=== PATIENT | female | born 1975 | race Asian ===

== ENCOUNTER 2018-06-07 09:21 | Day surgery (SDC) | payer OTHER ==
[2018-06-07] VITALS (11 sets, daily range): BP systolic 98–124; BP diastolic 56–73
[~2018-06-07] VITALS: Ht 157.5 cm; Wt 48.5 kg
--- NOTE | 2018-06-07 07:29 | Pre-Procedure Note/Attestation ---
Pre-Procedure Note/Attestation Complete Prior to Procedure Planned Procedure: not applicable Procedure Narrative: Procedure for Prolapse and Hemorrhoids Indications for Procedure Pre-Operative Diagnosis: Hemorrhoids Attestation I attest that I discussed the nature of the procedure; its benefits; risks and complications; and alternatives (and the risks and benefits of such alternatives ), prior to the procedure, with the patient (or the patient's legal policy services representative). I attest that, if there was a reasonable possibility of needing a blood transfusion, the patient (or the patient's legal policy services representative) was given the [facility] standardized written summary, pursuant to the [place] Blood Safety Act ([place] Health and Safety Code # 1645, as amended). I attest that I re-evaluated the patient just prior to the surgery and that there has been no change in the patient's H&P, except as documented below: Ivone Fuentes MD Jun 07, 2018 07:29
[~2018-06-07 09:21] MED LIST: NKM
[2018-06-07] MEDS ORDERED: cefOXitin 1gm Inj ONE (09:58)
[2018-06-07] MEDS ORDERED: fentaNYL 100 mcg/2 mL IV ONE (09:58)
[2018-06-07] MEDS ORDERED: Midazolam 2mg/2ml Inj ONE (09:58)
[2018-06-07] MEDS ORDERED: Dexamethasone 4mg/ml vial ONE (09:58)
[2018-06-07] MEDS ORDERED: EPINEPHrine 1mg/1ml Amp ONE (09:58)
[2018-06-07] MEDS ORDERED: Ropivacaine 5mg/ml Vial 30ml INJ ONE (09:59)
[2018-06-07] MEDS ORDERED: LR 1000ml ONE (10:00)
[2018-06-07] MEDS ORDERED: Sterile Water Irrig 1000ml IRRIG ONE (10:00)
[2018-06-07] MEDS ORDERED: Propofol 200mg/20ml IV ONE (10:00)
[2018-06-07] MEDS ORDERED: NS Irrig 1000ml IRRIG ONE (10:14)
[2018-06-07] MEDS ORDERED: LR 1000ml 1,000 ML IVLG SCH (10:37)
--- NOTE | 2018-06-07 10:37 | Anethesia Preoperative Eval ---
Anesthesia Pre-op PMH/ROS General Date of Evaluation: Jun 07, 2018 Time of Evaluation: 10:05 Anesthesiologist: Lefty ASA Score: ASA 2 Mallampati Score Class I : Soft palate, uvula, fauces, pillars visible Class II: Soft palate, uvula, fauces visible Class III: Soft palate, base of uvula visible Class IV: Only hard plate visible Mallampati Classification: Class II Surgeon: Gina Diagnosis: Hemorrhoids Surgical Procedure: Hemorrhoidectomy Anesthesia History: none Family History: no anesthesia problems Allergies: Uncoded Allergies: PLASTIC TAPE (Allergy, Severe, 06/07/18) RASH, ITCHING Medications: see eMAR Patient NPO?: Yes Past Medical History Cardiovascular: Denies: HTN, CAD, MS, valve dz, arrhythmia, other Pulmonary: Denies: asthma, COPD, MAIKEL, other Gastrointestinal/Genitourinary: Reports: GERD - mild; Denies: CRI, ESRD, other Neurologic/Psychiatric: Denies: dementia, CVA, depression/anxiety, TIA, other Endocrine: Denies: DM, hypothyroidism, steroids, other HEENT: Denies: cataract (L), cataract (R), glaucoma, [place] (L), [place] (R), other Hematology/Immune: Denies: anemia, DVT, bleeding disorder, other Musculoskeletal/Integumentary: Denies: OA, RA, DJD, DDD, edema, other PMH Narrative: as above PSxH Narrative: Anesthesia Pre-op Phys. Exam Physician Exam Last Vital Signs Date Time Temp Pulse Resp B/P (MAP) Pulse Ox O2 Delivery O2 Flow Rate FiO2 06/07/18 10:00 Room Air 06/07/18 09:40 97.8 55 18 124/73 99 Constitutional: NAD Neurologic: CN 2-12 intact Cardiovascular: RRR, no M/R/G Respiratory: CTA Gastrointestinal: S/NT/ND Airway Exam Mallampati Score: Class II MO: full Neck: flexible ROM: full Teeth: intact Dentures: no upper, no lower Anesthesia Pre-op A/P Labs Urine Test Test 06/07/18 09:30 Urine HCG, Qualitative Negative (NEGATIVE) Risk Assessment & Plan Assessment: ASA 2 Plan: MAC Status Change Before Surgery: No Pre-Antibiotics Drug: Cefoxitin 1gr. Given Within 1 Hr of Incision: Yes Time Given: 10:28 Rory Olea MD Jun 07, 2018 10:37
[2018-06-07] MEDS ORDERED: DiphenhydrAMINE 50mg/ml Inj IVP PRN (10:45)
[2018-06-07] MEDS ORDERED: Meperidine 50mg/ml Inj(FOR RIGORS ONLY) IV PRN (10:45)
[2018-06-07] MEDS ORDERED: Ketorolac 30mg Inj IV PRN (10:45)
--- NOTE | 2018-06-07 11:01 | Immediate Post-Op Evaluation ---
Immediate Post-Op Evalulation Immediate Post-Op Evalulation Procedure: Hemorrhoidectomy Date of Evaluation: Jun 07, 2018 Time of Evaluation: 11:00 IV Fluids: 700 Blood Products: none Estimated Blood Loss: 50 Urinary Output: none Blood Pressure Systolic: 106 Blood Pressure Diastolic: 53 Pulse Rate: 68 Respiratory Rate: 20 O2 Sat by Pulse Oximetry: 98 Temperature (Fahrenheit): 97.3 Pain Score (1-10): 2 Nausea: No Vomiting: No Complications none Patient Status: awake, patent, none Hydration Status: adequate Rory Olea MD Jun 07, 2018 11:01
--- NOTE | 2018-06-07 11:03 | Brief Operative Note ---
Immediate Post Operative Note Operative Note Pre-op Diagnosis: Hemorrhoids Procedure: Procedure for Prolapse and Hemorrhoids Post-op Diagnosis: same Post-op Diagnosis: same as pre-op Findings: consistent w/pre-op dx studies Surgeon: Ivone Fuentes MD Anesthesiologist: Rory Villegas MD Anesthesia: moderate sedation Specimen: yes Complications: none Condition: stable Fluids: see anesthesia record Estimated Blood Loss: minimal Drains: none Implant(s) used?: No Ivone Fuentes MD Jun 07, 2018 11:03
--- NOTE | 2018-06-07 11:23 | 48 Hour Post Anesthesia Eval ---
Post Anesthesia Evaluation Procedure: Hemorrhoidectomy Date of Evaluation: Jun 07, 2018 Time of Evaluation: 11:22 Blood Pressure Systolic: 102 0: 56 Pulse Rate: 64 Respiratory Rate: 20 Temperature (Fahrenheit): 97.6 O2 Sat by Pulse Oximetry: 98 Airway: patent Nausea: No Vomiting: No Pain Intensity: 2 Hydration Status: adequate Cardiopulmonary Status: stable Mental Status/LOC: patient returned to baseline Follow-up Care/Observations: n/a Post-Anesthesia Complications: none Follow-up care needed: ready to discharge Rory Olea MD Jun 07, 2018 11:23
--- NOTE | 2018-06-07 19:30 | Operative Note - Dictated ---
DATE OF OPERATION: 06/07/2018 PREPROCEDURE DIAGNOSIS: Large internal hemorrhoids. POSTPROCEDURE DIAGNOSIS: Large internal hemorrhoids. PROCEDURE: Procedure for prolapse and hemorrhoids. SURGEON: Ivone Fuentes M.D. ANESTHESIOLOGIST: Rory Olea M.D. ANESTHESIA: Propofol sedation with local anesthetic. INDICATION FOR PROCEDURE: The patient is a 42-year-old, [place] female, who was sent to my office for large prolapsing internal hemorrhoids. The patient had undergone hemorrhoidal sclerotherapy in 2014. The patient returned back to the office in 2018 requesting surgery since the hemorrhoidal sclerotherapy was minimally effective. In light of the patient's findings and symptoms, it was determined at this time to proceed with surgical excision. DESCRIPTION OF PROCEDURE: Upon consent of the patient, the patient brought to the operating room, and placed in a prone yuli-knife position on the operating table. Once adequate sedation was started with propofol drip, the patient's buttocks were prepped and draped in usual surgical fashion. 35 mL of 0.5% ropivacaine with epinephrine mixed with 6 mg of dexamethasone was used as a perianal and pudendal block. A Hill-Schwartz retractor was placed in the anal canal. There was a large circumferential internal hemorrhoids with the larger prolapse being in the posterior midline. The dilator Ethicon PPH stapler was inserted and removed. The dilator with a clear obturator was then inserted and the dilator was removed with a clear obturator was held firmly to the buttocks and placed. A purse-string anoscope was inserted and a pursestring was created approximately 2 cm proximal to the dentate line using a 2-0 Monocryl suture. Upon completion of the pursestring, the anoscope was removed. Then the pursestring was tightened around the anvil of the 33 mm hemorrhoidal PPH stapler. Attention was applied to the suture while gradually closing the stapler. The perianal skin was checked to make sure there was no involvement of the perianal skin and the vaginal wall was examined both manually and visually to make sure there is no involvement of the vaginal wall. The stapler was then fired, opened, and withdrawn and there was noted to be a complete hemorrhoidal donut. This was passed off the field as a specimen. The anoscope was then reinserted and any bleeding points along the staple line were ligated with [id number] 2-0 Vicryl suture. The anal canal was then irrigated and hemostasis was confirmed. An ice pack was used for postoperative swelling. Sponge, needle, and instrument counts were correct at the end of the case. The patient was awakened from anesthesia and brought to postanesthesia recovery room in stable condition. ESTIMATED BLOOD LOSS: 5 mL. DRAINS: None. SPECIMEN: Hemorrhoidal donut. COMPLICATIONS: None. Ivone Fuentes M.D. DR: AMEENA JOB#: [id number] CC: Ivoen Fuentes M.D.; Fax#: [phone]
== END 2018-06-07 12:40 | disposition home or self-care (01) ==
LOC: SUR 09:21
DX: K64.8 Other hemorrhoids (principal); K21.9 Gastro-esophageal reflux disease without esophagitis; Z91.040 Latex allergy status
CPT/HCPCS: 46947; 81025; J0171; J0694; J1100; J1885; J2250; J2704; J2795; J3010; 94003; 94150